=== PATIENT | female | born 1985 | race Caucasian/White ===

== ENCOUNTER 2018-03-26 13:29 | Emergency (ER) | payer BC ==
[2018-03-26] MEDS ORDERED: Morphine 4 MG/ML VIAL ONE (14:49)
--- NOTE | 2018-03-26 15:12 | CT ---
CT CERVICAL SPINE WITHOUT CONTRAST: Date: 03/26/18 HISTORY: Patient had a tree branch fall on the patient. Post-traumatic pain. Patient has a cervical collar. COMPARISON: None. TECHNIQUE: Noncontrast cervical spine CT is performed in the axial plane. Reformatted images are submitted for i nterpretation. FINDINGS: No craniocervical dissociation. Lateral masses of C1 and C2, as well as the facets have appropriate a lignment and articulation. Odontoid process is intact. No prevertebral soft tissue swelling. No epidural hematoma. Central spinal canal and neural foramen a re patent. Cervical spine vertebral body height is maintained. No fracture. Straightening of normal cervical lordosis likely due to patient positioning, muscle spasm, or cervica l collar. Current study is not tailored to assess for ligamentous injury. IMPRESSION: 1. No cervical spine fracture. 2. Straightening of normal cervical lordosis as defined above. Results of cervical spine CT and head CT discussed with Sirena Valentine on 03/26/18 at 1504 hours. CODE CR. POS: [facility]
--- NOTE | 2018-03-26 15:13 | CT ---
NONCONTRAST HEAD CT: Date: 03/26/18 HISTORY: Level II trauma. Tree branch fell on patient. Pain. COMPARISON: None. TECHNIQUE: A noncontrast head CT is performed from the skull base to the skull vertex. FINDINGS: No parenchymal hemorrhage or extra-axial hematoma. No midline shift. Basilar cisterns are patent. Bra in volume is age-appropriate. Cortical abarca-white matter differentiation is preserved. Ventricles and sulci are patent and symmetric. Calvarium is intact. Adequate aeration of the sinuses and mastoid ai r cells. IMPRESSION: No intracranial post-traumatic sequelae. POS: [facility]
--- NOTE | 2018-03-26 15:36 | RAD ---
CHEST 1 VIEW: Date: 03/26/18 HISTORY: Chest injury. FINDINGS: Cardiac silhouette is magnified by projection. Pulmonary vasculature is unremarkable. Mediastinum is midline. No lobar consolidation or evidence of pneumothorax. IMPRESSION: No significant abnormalities are demonstrated. POS: [facility]
--- NOTE | 2018-03-26 15:37 | RAD ---
LEFT ELBOW 2 VIEWS: Date: 03/26/18 HISTORY: Fall. Pain. COMPARISON: None. FINDINGS: No joint effusion. No fracture or dislocation. IMPRESSION: Unremarkable 2 views left elbow. POS: [facility]
--- NOTE | 2018-03-26 15:38 | RAD ---
2 VIEWS LEFT HAND: Date: 03/26/18 HISTORY: Pain. Tree branch fell on patient. FINDINGS: Oblique, nondisplaced fracture involving the fourth metacarpal. No evidence of interarticular extensi on. IMPRESSION: Fourth metacarpal fracture. POS: [facility]
--- NOTE | 2018-03-26 15:40 | RAD ---
TWO VIEWS LEFT FOREARM: HISTORY: Tree branch fell on patient. Pain. COMPARISON: None. FINDINGS: No fracture. No cortical irregularity or periosteal reaction. IMPRESSION: No fracture. POS: [facility]
--- NOTE | 2018-03-26 15:49 | RAD ---
LEFT WRIST 3 VIEWS: Date: 03/26/18 HISTORY: Tree branch fell on patient. Pain. COMPARISON: None. FINDINGS: Intercarpal and radiocarpal joint spaces are preserved. With regard to the carpal bones, no fractures . Fourth metacarpal fracture is noted. IMPRESSION: No evidence of a carpal bone fracture. POS: [facility]
== END 2018-03-26 18:06 | disposition home or self-care (01) ==
LOC: ERS 13:29
DX: S62.305A Unspecified fracture of fourth metacarpal bone, left hand, initial encounter for closed fracture (principal); S00.01XA Abrasion of scalp, initial encounter; F32.9 Major depressive disorder, single episode, unspecified; Z79.899 Other long term (current) drug therapy; W20.8XXA Other cause of strike by thrown, projected or falling object, initial encounter
CPT/HCPCS: 26605; 70450; 71045; 72125; 96374; G0390; J2270